=== PATIENT | male | born 1975 | race Caucasian/White ===

== ENCOUNTER 2017-10-28 19:05 | Emergency (ER) | payer OTHER, SELFPAY ==
[2017-10-28 19:06] VITALS: BP 154/93; PULSE 104; RESP 20; TEMP 36.6; O2SAT 97; BMI 34.0
--- NOTE | 2017-10-28 19:32 | RAD_ITS ---
STUDY: X-RAY - LEFT FOOT CLINICAL: Male, 42 years old. Left-sided foot pain for one week. TECHNIQUE: 3 view(s) of the foot. COMPARISON: None. FINDINGS: There is a small posterior calcaneal enthesophyte. Intertarsal articulations are within normal limits. Normal metatarsi. Normal metatarsophalangeal joint of the great toe. There is a bipartite tibial sesamoid. Normal interphalangeal joint of the great toe. Normal phalanges of the great toe. Normal second through fifth metatarsophalangeal joints. Normal interphalangeal joints and phalanges of the lesser toes. There is mild soft tissue swelling. There is no demonstrated fracture. RAD/Foot min 3 Views IMPRESSION: 1. Calcaneal spur. 2. No radiographic evidence for acute or healing fracture. Electronically Signed: Katt Saab MD at 19:59 EST , Service support ,
--- NOTE | 2017-10-28 19:55 | ED.VISSUMM ---
- ER Visit Summary Date of Service: 10/28/17 Chief Complaint: Left ankle and foot pain History of Present Illness: The patient is a 42 M 10 day history of ankle and foot pain, unknown injury. Week ago seen in urgent care with x-ray of the ankle that was negative. This persistent swelling and pain in his foot. 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 History of Achilles tendon repair on the same side 6 years ago. No pain in that region. No paresthesias. Physical Examination: General: Alert and oriented ?3, no acute distress HEENT: Normocephalic, atraumatic. Moist mucosa membranes Neck: supple, nontender. Cardiovascular: Regular rate and rhythm, no murmurs Respiratory: Normal breath sounds, symmetric, no distress Abdomen: Soft, nontender, nondistended Extremities: Left lower extremity: No knee pain. No calf pain or swelling. No malleoli or pain. There is swelling lateral malleolus with tenderness at the fibular calcaneal ligament. No proximal fifth base tenderness, however tenderness at the proximal fourth MTP with no deformities. Skin intact. No ecchymosis. DP pulses intact. Neuro: no focal neurological deficits. Test Results: Left foot x-ray: No fracture, heel spur Emergency Department Course and Treatment: Patient with no bony ankle tenderness. Tender at the ligament concerns for sprain. Bony pain at foot therefore x-ray obtained shows no fracture. Continue Juan wrap, he does have an Aircast. Discussed with ankle and foot sprain at this time. Continued rice therapy, continues NSAIDs. Follow-up as an outpatient for reevaluation. Treatment Plan: [] Disposition: Discharge Impression: Left ankle and foot sprain This note was generated with [employer] dictation software. It may contain incorrect words, spelling, and punctuation that were not noted in review of the chart prior to signing ED Disposition - Plan for ED Patient: Disposition: Home or Assisted Living Chief Complaint: Lower Extremity Injury Diagnosis: Strain of left ankle and foot Instructions: ED Sprain Foot, ED Sprain Ankle W X Ray Referrals: Joseph Campbell MD [Primary Care Provider] - 5-7 Days
[2017-10-28 20:39] VITALS: BP 148/80; PULSE 80; RESP 14; O2SAT 99
== END 2017-10-28 20:39 | disposition home or self-care (01) ==
PROVIDERS: Emergency Provider Emergency Medicine; Family Provider Family Medicine; PCP Family Medicine
DX: S93.402A Sprain of unspecified ligament of left ankle, initial encounter (principal); S93.602A Unspecified sprain of left foot, initial encounter; X58.XXXA Exposure to other specified factors, initial encounter; Y93.9 Activity, unspecified
CPT/HCPCS: 73630; 99282